=== PATIENT | male | born 1980 | race Caucasian/White ===

== ENCOUNTER 2024-06-06 19:51 | Emergency (ER) | payer BC, SELFPAY ==
--- NOTE | ~2024-06-06 | CT_ITS ---
EXAMINATION: CT abdomen pelvis wo con DATE: 06/06/2024 21:41 INDICATION: Kidney stone. TECHNIQUE: Computed tomography (CT) of the abdomen and pelvis was performed without intravenous contr ast. Automated exposure control and iterative reconstruction technique were employed. The dose-length product was 233.29 mGy-cm. COMPARISON: None. FINDINGS: The visualized portions of the lung bases demonstrate mild atelectasis on the right. There is elevation of right hemidiaphragm. There is a right anterior diaphragmatic hernia containing nonobs tructed colon. The liver, gallbladder, spleen, pancreas, adrenal glands, and right kidney are normal. There is a 3 mm stone at left ureterovesicular junction with mild left hydroureter. There are two 1 mm stones in left kidney. There are no dilated loops of bowel. The appendix is normal. There are no p athologically enlarged lymph nodes. There are old healed fractures of right ilium, right acetabulum, and right superior and inferior pubic rami. There is internal fixation of the right ilium. IMPRESSION: 1. 3 mm stone at left ureterovesicular junction with mild left hydroureter. 2. Two 1 mm nonobstructing left kidney stones. 3. Right anterior diaphragmatic hernia containing nonobstructed colon. Reviewed, dictated and finalized at location A. [employer]
[2024-06-06 20:04] VITALS: BP 136/90; PULSE 82; RESP 18; TEMP 36.6; O2SAT 100
--- NOTE | 2024-06-06 21:47 | PC.NURSE ---
Pt refused blood draw and IV. EDP made aware. pt stated he will think about it
[2024-06-06 22:02] LABS: Add Urine Microscopic? YES; Appearance Urine Clear (Clear); Bacteria Urine None Seen /hpf; Bilirubin Urine Negative (Negative); Blood Urine 3+ (Negative); Color Urine Yellow (Yellow); Glucose Urine UA Negative (Negative); Ketones Urine Negative (Negative); Leukocyte Esterase Ur Negative LEU/UL (Negative); Nitrate Urine Negative (Negative); Non Pathogenic Casts 0-2; Protein Urine Negative (Negative); RBC Urine 21-50 /hpf (0-2); Specific Grav Ur 1.013 (1.001-1.035); Squamous Epithelial Cell Urine None Seen /hpf (Few); Urobilinogen Urine 0.2 mg/dL (<2.0); WBC Urine 0-5 /hpf (0-3); pH Urine 7.5 (5.0-9.0)
[2024-06-06 22:23] LABS: Basophils Percent Auto 0.2 % (0.2-1.2); Eosinophils Percent Auto 0.1 % (0-4.4); Hemoglobin 15.9 g/dL (14.0-18.0); Immature Granulocyte Absolute 0.04 K/mm3 (0.00-0.031); Immature Granulocyte Percent A 0.3 % (0-0.5); Lymphocytes Absolute Auto 1.29 K/mm3 (0.9-3.2); Lymphocytes Percent Auto 9.1 % (18.3-44.2); Mean Corpuscular HGB Conc 35.3 g/dl (32-36); Mean Corpuscular Hemoglobin 30.9 pg (26-34); Mean Corpuscular Volume 87.5 fl (80-100); Mean Platelet Volume 11.3 fl (7.4-10.4); Monocytes Absolute Auto 0.6 K/mm3 (0.1-0.6); Monocytes Percent Auto 4.1 % (2.6-8.5); Neutrophils Absolute Auto 12.2 K/mm3 (1.3-6.7); Neutrophils Percent Auto 86.2 % (45.5-73.1); Platelet Count Result 199 k/mm3 (150-375); Red Blood Count 5.14 M/mm3 (4.6-6.20); Red Cell Distribution Width 11.4 % (11.5-14.5); White Blood Count 14.2 K/mm3 (4.5-10.0)
[2024-06-06 22:34] LABS: Alanine Aminotransferase 19 U/L (6-50); Alkaline Phosphatase 58 U/L (38-126); Anion Gap 8 mmol/L (4-12); Aspartate Amino Transferase 28 U/L (17-59); Bilirubin,Total 0.8 mg/dL (0.2-1.3); Blood Urea Nitrogen 16 mg/dL (9-20); Calcium 10.2 mg/dL (8.4-10.2); Carbon Dioxide 23 mmol/L (22-30); Chloride 104 mmol/L (98-107); Estimated CRCL calculation 84 ml/min; Estimated Glomerular Filt Rate > 60; Glucose 155 mg/dL (65-110); Potassium 3.5 mmol/L (3.4-5.0); Sodium 135 mmol/L (137-145)
--- NOTE | 2024-06-06 22:38 | ED.GENADULT ---
HPI - General Adult General Chief complaint: Back Pain/Injury Stated complaint: L flank pain, pain with urination Time Seen by Provider: 06/06/24 21:13 History of Present Illness HPI narrative: This is a 44-year-old male presenting left-sided flank pain. Patient said the pain started earlier today. This is severe sharp pain in flank. Has had some difficulty at your initiating urinary stream. No hematuria. No dysuria or fevers. Patient says he has has history of kidney stones that he was never diagnosed but doctor. Related Data Allergies Allergy/AdvReac Type Severity Reaction Status Date / Time No Known Allergies Allergy Verified 06/06/24 19:52 Exam Narrative: APPEARANCE: No apparent distress. Head: atraumatic. EYES: EOMI, NOSE: Atraumatic NECK: Trachea midline RESPIRATORY: No increased rate of breathing CARDIOVASCULAR: RRR, ABDOMINAL: Soft nontender no guarding rebound, left CVA tenderness MUSCULOSKELETAl: No obvious deformities NEURO: Alert. Moving 4/4 extremities SKIN:: Warm, dry. Normal color PSYCHIATRIC: Normal affect Course Vital Signs Vital signs: Vital Signs Temperature 97.9 F 06/06/24 20:04 Pulse Rate 82 06/06/24 20:04 Respiratory Rate 18 06/06/24 20:04 Blood Pressure 136/90 06/06/24 20:04 Pulse Oximetry 100 06/06/24 20:04 Oxygen Delivery Room Air 06/06/24 20:04 Temperature 97.9 F 06/06/24 20:04 Pulse Rate 82 06/06/24 20:04 Respiratory Rate 18 06/06/24 20:04 Blood Pressure 136/90 06/06/24 20:04 Pulse Oximetry 100 06/06/24 20:04 Oxygen Delivery Room Air 06/06/24 20:04 Medical Decision Making [facility] Narrative Medical decision making narrative: -Course: 44-year-old male presenting with flank pain. CT showed a 3 mm left sided kidney stone at the UVJ. Urine not indicative infection. Pain was controlled in the ED. We discharged with appropriate medications urology follow-up. Given return precautions. Patient is very scared of needles and we had to convince him to get blood taken. He eventually conquered his fear. -DDX includes but is not limited to: Kidney stone, muscles spasm pipe kidney infection -Independent interpretation of studies: labs and imaging reviewed -Interventions:Motrin/Tylenol -Shared decision making / Disposition:discharged. Vital Signs Vital Signs: Vital Signs Temperature 97.9 F 06/06/24 20:04 Pulse Rate 82 06/06/24 20:04 Respiratory Rate 18 06/06/24 20:04 Blood Pressure 136/90 06/06/24 20:04 Pulse Oximetry 100 06/06/24 20:04 Oxygen Delivery Room Air 06/06/24 20:04 Temperature 97.9 F 06/06/24 20:04 Pulse Rate 82 06/06/24 20:04 Respiratory Rate 18 06/06/24 20:04 Blood Pressure 136/90 06/06/24 20:04 Pulse Oximetry 100 06/06/24 20:04 Oxygen Delivery Room Air 06/06/24 20:04 Lab Data 06/06/24 22:19 06/06/24 22:19 Labs: Lab Results 06/06/24 06/06/24 Range/Units 21:33 22:19 WBC 14.2 H (4.5-10.0) K/mm3 RBC 5.14 (4.6-6.20) M/mm3 Hgb 15.9 (14.0-18.0) g/dL Hct 45.0 (42.0-52.0) % MCV 87.5 (80-100) fl MCH 30.9 (26-34) pg MCHC 35.3 (32-36) g/dl RDW 11.4 L (11.5-14.5) % Plt Count 199 (150-375) k/mm3 MPV 11.3 H (7.4-10.4) fl Immature Gran % (Auto) 0.3 (0-0.5) % Neut % (Auto) 86.2 H (45.5-73.1) % Lymph % (Auto) 9.1 L (18.3-44.2) % Brule % (Auto) 4.1 (2.6-8.5) % Eos % (Auto) 0.1 (0-4.4) % Baso % (Auto) 0.2 (0.2-1.2) % Lymph # (Auto) 1.29 (0.9-3.2) K/mm3 Brule # (Auto) 0.6 (0.1-0.6) K/mm3 Eos # (Auto) 0.0 (0-0.3) K/mm3 Baso # (Auto) 0.0 (0.0-0.1) K/mm3 Abs Immat Gran (auto) 0.04 H (0.00-0.031) K/mm3 Absolute Neuts (auto) 12.2 H (1.3-6.7) K/mm3 Absolute Nucleated RBC 0.000 (0.0-0.012) K/mm3 Nucleated RBC % 0.0 (0.0-0.2) % Sodium 135 L (137-145) mmol/L Potassium 3.5 (3.4-5.0) mmol/L Chloride 104 (98-107) mmol/L Carbon Dioxide 23 (22-30) mmol/L Anion Gap 8 (4-12) mmol/L BUN 16 (9-20) mg/dL Creatinine 0.90 (0.7-1.3) mg/dL Estim Creat Clear Calc 84 ml/min Estimated GFR > 60 (59 - ) Glucose 155 H (65-110) mg/dL Calcium 10.2 (8.4-10.2) mg/dL Total Bilirubin 0.8 (0.2-1.3) mg/dL AST 28 (17-59) U/L ALT 19 (6-50) U/L Alkaline Phosphatase 58 (38-126) U/L Total Protein 7.0 (6.3-8.2) g/dL Albumin 5.0 (3.5-5.1) g/dL Urine Color Yellow (Yellow) Urine Appearance Clear (Clear) Urine pH 7.5 (5.0-9.0) Ur Specific [place] 1.013 (1.001-1.035) Urine Protein Negative (Negative) mg/dL Urine Glucose (UA) Negative (Negative) mg/dL Urine Ketones Negative (Negative) mg/dL Ur Blood (Man) 3+ H (Negative) Urine Nitrate Negative (Negative) Urine Bilirubin Negative (Negative) Urine Urobilinogen 0.2 (<2.0) mg/dL Leukocyte Esterase Rfl Negative (Negative) TREVON/UL Urine RBC 21-50 H (0-2) /hpf Urine WBC 0-5 (0-3) /hpf Ur Squamous Epith Cells None seen (Few) /hpf Urine Bacteria None seen /hpf Urine Casts 0-2 Discharge Plan Discharge Clinical Impression: Kidney stone Patient Disposition: Home, Self-Care Condition: Stable Instructions: Antibiotic Form, Kidney Stones (ED) Additional Instructions: You were seen in the emergency department for a kidney stone. Please use Motrin/Tylenol for pain. Use oxycodone for breakthrough pain. Use Zofran for nausea. Please follow-up with your Urologist for further management. Please return if you develop severe pain, fevers or intractable nausea and vomiting. Patient Language: Spanish Prescriptions: New acetaminophen 500 mg tablet 1,000 mg PO TID PRN (Reason: christiano) 7 Days Qty: 42 0RF ibuprofen 800 mg tablet 800 mg PO TID PRN (Reason: pain) 7 Days Qty: 21 0RF tamsulosin [Flomax] 0.4 mg capsule 0.4 mg PO DAILY Qty: 30 0RF ondansetron 4 mg tablet,disintegrating 4 mg PO Q8H PRN (Reason: nausea and vomiting) Qty: 30 0RF oxycodone 5 mg tablet 5 mg PO Q4H PRN (Reason: pain) Qty: 14 0RF Follow-up/Referrals: PHYSICIAN,ECONOMICS CONSULTANT [Primary Care Provider] - Dilan Mcmanus MD [Physician] - 1 Week (Kidney stone )
[2024-06-06] MEDS: ACETAMINOPHEN 500 MG TABLET 1000 MG PO (23:08)
[2024-06-06] MEDS: IBUPROFEN 400 MG TABLET 800 MG PO (23:08)
--- NOTE | 2024-06-06 23:09 | PC.NURSE ---
This RN had to manually enter barcode due to computer in pt room not working
[2024-06-06 23:50] VITALS: BP 140/79; PULSE 89; RESP 18; O2SAT 99
[2024-06-07 00:12] VITALS: BP 140/79; PULSE 89; RESP 18; O2SAT 99
== END 2024-06-07 00:15 | disposition home or self-care (01) ==
PROVIDERS: Emergency Medicine; Emergency Provider Emergency Medicine
DX: N20.0 Calculus of kidney (principal)
CPT/HCPCS: 36415; 74176; 80053; 81001; 85025; 99284; A9270

== ENCOUNTER 2024-11-08 08:07 | Emergency (ER) | payer BC, SELFPAY ==
--- OUTSIDE RECORDS SUMMARY | 2024-11-08 08:11 | XMS_ITS | Clinical Summary ---
Author Organization [facility] Address [address] [place] [address] Care Team Providers Care Patient Scheduling Manager Name Role Phone Unavailable Primary Care Provider Unavailabl e Source Comments [facility] [employer],non-owned Affiliates and Associated Physician Practices is amultiple site organization consisting of ambulatory clinics and hospital sitesin [place], [place], [place] and [place]. This disclosure is being madepursuant to the Care Everywhere program and may not contain all information available regarding this patient. Last updated 18.[facility] [employer] Allergies No known active allergies Medications * Be aware that medications may not be up to date on this document. Alwaysverify current medications with the patient. hydrocodone-acet aminophen (NORCO) 5-325 MG tablet Take 1 Tab by mouth every 4 hours as needed for Pain 15 Tab 0 12/13/2014 Active ondansetron (ZOFRAN) 4 MG tablet Take 1 Tab by mouth every 4 hours as needed for Nausea/Vomi ting 10 Tab 0 12/13/2014 Active Social History Tobacco Use Types Packs/Day Years Used Date Smoking Tobacco: Never Alcohol Use Standard Drinks/Week Comments No 0 (1 standard drink = 0.6 oz pur e alcohol) Sex and Gender Information Value Date Recorded Sex Assigned at Not on file Legal Sex Male 10:15 PM CDT Gender Identity Not on file Sexual Orientation Not on file Last Filed Vital Signs Vital Sign Reading Time Taken Comments Blood Pressure 120/66 12/13/2014 1:39 AM CDT Pulse 85 12/13/2014 1:39 AM CDT Temperature 36.8 C (98.3 F) 12/13/2014 1:39 AM CDT Respiratory Rate 15 12/13/2014 1:39 AM CDT Oxygen Saturation 100% 12/13/2014 1:39 AM CDT Inhaled Oxygen Concentration - - Weight 63.5 kg (140 lb) 12/12/2014 8:50 PM CDT Height 167.6 cm (5' 5.98 ) 12/12/2014 8:50 PM CD T Body Mass Index 22.61 12/12/2014 8:50 PM CDT Plan of Treatment Health Maintenance Due Date Last Done Comments LIPID TESTING 1981 HIV SCREENING 1996 HEPATITIS C SCREENING 04/08/1999 DTAP/TDAP/TD VACCINES (1 - Tdap) 2000 HEPATITIS B VACCINE (1 of 3 - 19+ 3-dose series) 2000 COVID-19 VACCINE (1 - 2023-2 5 season) 2024 DEPRESSION SCREENING 06/19/2024 INFLUENZA VACCINE (Season Ended) 2025 ZOSTER VACCINE (1 of 2) 2031 HIB VACCINE Aged Out No longer eligi ble based on patient's age to complete this topic HPV VACCINE Aged Out No longer eligi ble based on patient's age to complete this topic MENINGOCOCCAL (Group B) VACC INE SHARED DECISION-MAKING Aged Out No longer eligibl e based on patient's age to complete this topic MENINGOCOCCAL GROUPS A/C/Y/W VACCINE Aged Out No longer eligible b ased on patient's age to complete this topic PNEUMOCOCCAL VACCINE Aged Out No long er eligible based on patient's age to complete this topic Insurance [employer]
--- OUTSIDE RECORDS SUMMARY | 2024-11-08 08:11 | XMS_ITS | Clinical Summary ---
Author Organization [facility] Address [address] [address] Phone Care Team Providers Care Interactive Developer Name Role Phone Clifford Pandya MD Primary Care Provider + Allergies No known active allergies Medications cetirizine (ZyrTEC) 10 mg tablet Take 10 mg by mouth daily Active Active Problems Problem Noted Date Diagnosed Date Annual physical exam 01/22/2021 Assessment & Plan (01/22/2021 3:36 PM CDT): - Reviewed with the patient BMI, blood pressure, diet, exercise, and encouraged healthy lifestyle choices. - Screened for high risk behaviors, diet and exercise habits, and symptoms of depression. - check screening labs - encouraged regular exercise Erectile dysfunction 01/22/2021 Assessment & Plan (01/22/2021 3:37 PM CDT): - uncontrolled - check testosterone, cbc - will check PSA since having some hesitancy with urination - trial of viagra - discussed the risks/benefits/side effects of medication Hesitancy 01/22/2021 Assessment & Plan (01/22/2021 3:38 PM CDT): - likely benign but will check PSA Immunizations Immunization Administration Dates Next Due Influenza, Unspecified 03/19/2020(Deferred: Elana ent Refused) Pfizer SARS-CoV-2 Monovalent Vaccination (12+ Yrs) PURPLE 09/27/2020,09/06/2020 Surgical History Surgery Date Site/Laterality Comments FRACTURE SURGERY Pelvis reconstructed Medical History Medical History Date Comments Anxiety Brain concussion Family History Medical History Relation Name Comments No Known Problems Father Cancer Maternal Grandfather Quinton Capps Cancer Maternal Grandmother Manasa Capps Depression Mother Rosy Clifford Obesity Mother Rosy Clifford Diabetes Mother's Brother Omega Capps Heart disease Mother's Brother Omega Capps Obesity Mother's Brother Omega Capps Stroke Paternal Grandfather Giovanni Clifford Cancer Paternal Grandmother Chago Rob[place]t Hypertension Paternal Grandmother Chago Clifford Relation Name Status Comments Father Alive Maternal Grandfather Quinton Capps Maternal Grandmother Manasa Capps Mother Rosy Clifford Alive Mother's Brother Omega Capps Paternal Grandfather Giovanni Clifford Paternal Grandmother Chago Clifford Social History Tobacco Use Types Packs/Day Years Used Date Smoking Tobacco: Never AUDIT-C Answer Date Recorded Q1: How often do you have a drink containing alc ohol? 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 Gender Identity Male 07/10/2020 7:59 AM TRAILHEAD MAINTENANCE WORKER Sexual Orientation Straight 07/10/2020 7: 59 AM TRAILHEAD MAINTENANCE WORKER Obstetrics History Last Filed Vital Signs Vital Sign Reading Time Taken Comments Blood Pressure 112/70 01/22/2021 2:53 PM CDT Pulse 112 01/22/2021 2:53 PM CDT Temperature 36.5 C (97.7 F) 01/22/2021 2:53 PM CDT Respiratory Rate 16 01/22/2021 2:53 PM CDT Oxygen Saturation 99% 01/22/2021 2:53 PM CDT Inhaled Oxygen Concentration - - Weight 65.2 kg (143 lb 11.2 oz) 01/22/2021 2:53 PM CDT Height 167.6 cm (5' 6 ) 01/22/2021 2:53 PM CDT Body Mass Index 23.19 01/22/2021 2:53 PM CDT Plan of Treatment Health Maintenance Due Date Last Done Comments Hepatitis C Screening 1981 DTaP/Tdap/Td Vaccine (1 - Tdap) 1992 Hepatitis B Screening 1999 Depression Screening 01/22/2022 01/22/2021 Regular Well Visit/Exam 18-64 01/22/2022 01/22/2021 Covid-19 Vaccine ( season) 2024 09/27/2020, 09/06/2020 Influenza Vaccine (Season Ended) 2025 HPV Vaccines Aged Out No longer eligi ble based on patient's age to complete this topic Pneumococcal vaccine <65 Aged Out No longer eligible based on patient's age to complete this topic Varicella Vaccines Discontinued Insurance [employer] OOS Member Subscriber Plan / Payer (Ef fective 2021-Present) Name:Tavo Clifford Relation to Subscriber:Self Name:Tavo Clifford Payer ID:[id number] (NAIC) Type: ALLIANCE Address: [id number] [place] [id number] Care Teams Interactive Developer Relationship Specialty [place] [address] [place] [id number] PCP - General Family Medicine 01/22/21
--- OUTSIDE RECORDS SUMMARY | 2024-11-08 08:11 | XMS_ITS | Referral Summary ---
Author Organization [facility] Address [address] [place] [phone] Phone Care Team Providers Care Sheriff'S Sergeant Name Role Phone Clifford Pandya MD Primary [...] SARS-CoV-2 Monovalent Vaccination (12+ Yrs) PURPLE 09/27/2020,09/06/2020 Social History Tobacco Use Types Packs/Day Years [...] on file Legal Sex Male 7:57 AM RN IV THERAPY Gender Identity Male 07/10/2020 7:59 AM RN IV THERAPY Sexual Orientation Straight 07/10/2020 7: 59 AM RN IV THERAPY Last Filed Vital Signs Vital Sign Reading [...] 01/22/2021 2:53 PM CDT Plan of Treatment Not on file Insurance [facility] License Acquisitions OOS Care Teams Sheriff'S Sergeant Relationship Specialty Start Date End Date Clifford Pandya MD [address] [place] [phone] PCP - General Family Medicine 01/22/21
[2024-11-08 08:13] VITALS: BP 127/74; PULSE 90; RESP 18; TEMP 36.6; O2SAT 100
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
[2024-11-08 08:43] LABS: EDUAAPPEAR Clear; EDUABILI Negative (Negative); EDUABLOOD Trace (Negative); EDUACOLOR1 Yellow; EDUAGLUCOSE Negative (Negative); EDUAKETONE Negative (Negative); EDUALEUKO Negative (Negative); EDUANITRATE Negative (Negative); EDUAPROTEIN Negative (Negative); EDUAUROBILI 0.2
== END 2024-11-08 08:48 | disposition home or self-care (01) ==
PROVIDERS: Emergency Provider Nurse Practitioner
DX: R30.0 Dysuria (principal); Z87.442 Personal history of urinary calculi
CPT/HCPCS: 81003; 99212; G0463